=== PATIENT | male | born 1960 | race Caucasian/White ===

== ENCOUNTER 2022-08-04 08:53 | Outpatient (RCR) | payer BC ==
[~2022-08-04] VITALS: Ht 175.3 cm; Wt 85.2 kg
[~2022-08-04 08:53] MED LIST: ALEVE 220MG220 MG PO; ARAVA 20MG TABL20 MG PO; CUBICIN 500MG500 MG IV; DOXYCYCLINE 10100 MG PO; NORCO 325 MG-51 TAB PO; PREDNISONE10 MG PO; TUMS500 MG PO
[2022-08-04 09:32] LABS: BASO # 0.1 K/mm3 (0.0-0.2); BASO % 0.9 % (0.0-2.0); EOS # 0.5 K/mm3 (0.0-0.7); EOS % 6.6 % (0.0-4.0); GRAN # 4.8 K/mm3 (1.4-6.5); GRAN % 64.2 % (42.2-75.2); HEMOGLOBIN 11.8 g/dl (13.5-18.0); LYMPH # 1.4 K/mm3 (1.2-3.4); LYMPH % 18.9 % (20.0-51.0); MEAN CELL VOLUME 81 fl (80.0-100.0); MEAN CORPUSCULAR HEMOGLOBIN 26 pg (27-31); MEAN CORPUSCULAR HGB CONC 32 g/dl (33.0-37.0); MONO # 0.7 K/mm3 (0.1-0.6); PLATELET COUNT 309 K/mm3 (130-400); RED BLOOD COUNT 4.56 M/mm3 (4.20-5.60); REDCELL DISTRIBUTION WIDTH-CV 17.8 % (11.5-14.5)
[2022-08-04 09:33] LABS: HEMATOCRIT 36.8 % (42.0-52.0)
[2022-08-04 09:40] LABS: ALBUMIN 3.5 gm/dL (3.4-4.8); BILIRUBIN,TOTAL 0.3 mg/dL (0.2-1.2); C-REACTIVE PROTEIN 1.06 mg/dL (0.00-0.50); CALCIUM 9.6 mg/dL (8.4-10.2); CREATININE, serum 1.01 mg/dL (0.72-1.25); POTASSIUM 4.3 mmol/L (3.5-4.5); TOTAL PROTEIN 7.4 gm/dL (6.2-8.1)
[2022-08-04 10:03] LABS: ERYTHROCYTE SEDIMENTATION RATE 21 mm/hr (0-30)
[2022-08-04 10:08] VITALS: BP 151/81; PULSE 81; TEMP 98.1
[2022-08-04 10:10] VITALS: BP 151/81; PULSE 84; TEMP 98.1
--- NOTE | 2022-08-04 10:21 | NUR ---
Pt remained on bedrest for 30+ mins following PICC DC. Dressing remains clean, dry and intact. Pt education form for post PICC removal sent with pt. He will check in with Dr Rizo' office tomorrow, and take benadryl for redness, itching complaints. Pt exits dept with walker, gait steady.
== END 2022-08-04 10:21 | disposition home or self-care (01) ==
LOC: EUO 08:53
PROVIDERS: Family Medicine
DX: Z45.2 Encounter for adjustment and management of vascular access device (principal); M00.9 Pyogenic arthritis, unspecified

== ENCOUNTER 2023-12-17 05:36 | Inpatient (IN) | payer MEDICARE, BC ==
[2023-12-17] VITALS (11 sets, daily range): BP systolic 140–168; BP diastolic 68–93; PULSE 85–94; TEMP 97.6–98.5
[~2023-12-17] VITALS: Ht 175.3 cm; Wt 92.0 kg
[~2023-12-17 05:36] MED LIST changes: +LR 1,000 ML IV SCH
[2023-12-17 06:32] LABS: BASO # 0.1 K/mm3 (0.0-0.2); BASO % 1.2 % (0.0-2.0); EOS # 0.4 K/mm3 (0.0-0.7); EOS % 7.5 % (0.0-4.0); GRAN # 3.1 K/mm3 (1.4-6.5); HEMOGLOBIN 15.3 g/dl (13.5-18.0); LYMPH # 0.9 K/mm3 (1.2-3.4); LYMPH % 18.5 % (20.0-51.0); MEAN CELL VOLUME 94 fl (80.0-100.0); MEAN CORPUSCULAR HEMOGLOBIN 32 pg (27-31); MEAN CORPUSCULAR HGB CONC 34 g/dl (33.0-37.0); MEAN PLATELET VOLUME 9.9 fl (7.4-10.4); MONO # 0.6 K/mm3 (0.1-0.6); MONO % 12.6 % (1.7-9.3); PLATELET COUNT 237 K/mm3 (130-400); REDCELL DISTRIBUTION WIDTH-CV 13.3 % (11.5-14.5)
[2023-12-17 06:34] LABS: PROTHROMBIN TIME 11.1 SECONDS (9.7-12.8)
[2023-12-17] MEDS ORDERED: Vancomycin 1.5 GM,Special Dose/Pharmacy Prepared 1.5 GM in NS 250 ML IV SCH (06:45)
[2023-12-17 06:48] LABS: ERYTHROCYTE SEDIMENTATION RATE 60 mm/hr (0-30)
[2023-12-17] MEDS ORDERED: dexAMETHasone 10 MG/ML VIAL ONE (06:56)
[2023-12-17] MEDS ORDERED: NS 10 ML IV ONE (06:56)
[2023-12-17] MEDS ORDERED: Ketorolac 30 MG/ML VIAL ONE (06:56)
[2023-12-17] MEDS ORDERED: fentaNYL 50 MCG/ML 2 ML VIAL ONE ×2 (06:56→07:34)
[2023-12-17] MEDS ORDERED: Lidocaine PF 2% (20 MG/ML) 5 ML VIAL ONE (06:56)
[2023-12-17] MEDS ORDERED: Ondansetron 4 MG/2 ML VIAL ONE (06:56)
[2023-12-17 06:58] LABS: ALBUMIN 3.2 g/dL (3.4-4.8); BILIRUBIN,TOTAL 0.5 mg/dL (0.2-1.2); C-REACTIVE PROTEIN 2.49 mg/dL (0.00-0.50); CALCIUM 10.2 mg/dL (8.4-10.2); CREATININE, serum 1.01 mg/dL (0.72-1.25); POTASSIUM 3.8 mEq/L (3.5-4.5); TOTAL PROTEIN 7.2 g/dl (6.2-8.1)
[2023-12-17] MEDS ORDERED: Ondansetron 4 MG/2 ML VIAL IV PRN ×2 (07:45→08:15)
[2023-12-17] MEDS ORDERED: hydrALAZINE 20 MG/ML 1 ML VIAL IV PRN (07:45)
[2023-12-17] MEDS ORDERED: fentaNYL 50 MCG/ML 1 ML SYRINGE/VIAL [PACU/SDC ONLY] IV PRN (07:45)
[2023-12-17] MEDS ORDERED: HYDROmorphone 1 MG/1 ML SYRINGE [PACU/SDC ONLY] IV PRN (07:45)
[2023-12-17] MEDS ORDERED: droPERidol 2.5 MG/ML 2 ML VIAL IV PRN (07:45)
[2023-12-17] MEDS ORDERED: Vancomycin 1 GM VIAL IL ONE (07:55)
[2023-12-17] MEDS ORDERED: Naloxone 0.4 MG/ML VIAL IV PRN (08:15)
[2023-12-17] MEDS ORDERED: Magnes Hydrox (MOM) 80 MG/ML 30 ML CUP PO PRN (08:15)
[2023-12-17] MEDS ORDERED: NS 1,000 ML IV SCH (08:15)
[2023-12-17] MEDS ORDERED: oxyCODONE 5 MG TAB PO PRN (08:15)
[2023-12-17] MEDS ORDERED: Morphine 4 MG/ML VIAL IV PRN (08:15)
--- NOTE | 2023-12-17 08:33 | NUR ---
Vancomycin Initial Dosing Pharmacy Note Ordering provider: Babatunde Indication/duration: Septic arthritis, 42 days LABS: SCr 1.01, GFR 83 Recommendation: Vancomycin 1.5 gm IV x1 loading dose, then Vancomycin 1.25 gm IV q12h. Pharmacy will closely montior and check a trough on 12/18/23. Loading dose: 1.5 grams Maintenance dose: 1.25 grams every 12 hours Trough goal: 15-20 ug/mL
[2023-12-17] MEDS ORDERED: Celecoxib 200 MG CAP PO SCH (09:00)
[2023-12-17] MEDS ORDERED: Acetaminophen 500 MG TAB PO SCH (09:14)
--- NOTE | 2023-12-17 12:33 | NUR ---
PT ARRIVED FROM PACU AT 1010. VITALS STABLE. RATES PAIN 2/10 IN THE RIGHT KNEE. ASSESSED PT. ACEWRAP BULKY DRESSY TO RIGHT LEG. ANAYELI DRAIN TO BULB SUCTION ABOVE DRESSING. BRIGHT RED DRAINAGE. PT TOLERATING CLEARS. NO OTHER COMPLAINTS AT THIS TIME. CALL LIGHT WITHIN REACH.
[2023-12-17] MEDS ORDERED: TIMOPTIC 0.5%-10 OU (14:00)
[2023-12-17] MEDS ORDERED: Vancomycin 1.25 GM,Special Dose/Pharmacy Prepared 1.25 GM in NS 250 ML IV SCH (18:30)
[2023-12-17] MEDS ORDERED: Sennosides/Docusate 8.6-50 MG TAB PO SCH (21:00)
--- NOTE | 2023-12-17 21:35 | NUR ---
Pt sitting up in bed watching tv upon this nurse's entry to room. A&Ox4. No acute distress present. VS obtained and WNL. HS scheduled medications administered per EMAR. PRN oxycodone also administered per pt request. Pt reporting 4/10 sharp pain to right knee. Shift assessment performed. RR even and unlabored. HRRR. Abd round and soft. Bowel sounds present x4 quadrants. Skin is warm and dry. PIV to LFA INT. Right lower extremity elevated. Knee brace in place to right knee. ANGELIQUE wrap dressing to right knee free of saturation of drainage. ANAYELI drain present w/ approx 10cc of bright red sanguineous drainage. Ice pack placed to right knee. Pulses present and palpable to BLE. No loss in sensation to BLE. Pt denies any abnormal or febrile symptoms. Call light in reach. Care ongoing.
--- NOTE | 2023-12-17 22:09 | NUR ---
Pt has order for incentive spirometer QHR during waking hours. No incentive spirometer in room. RT contacted @ [phone] and will be bringing one for pt.
[2023-12-18] VITALS (11 sets, daily range): BP systolic 134–173; BP diastolic 80–101; PULSE 75–90; TEMP 97.5–98
--- NOTE | 2023-12-18 08:00 | NUR ---
PATIENT IS A&O. REPORTS MILD DISCOMFORT IN RLE BUT IS REQUESTING SOMETHING FOR PAIN BEFORE PT & PICC LINE PLACEMENT THIS AM. GAVE PRN OXYCODONE WITH AM MEDS, SEE MAR. NO C/O N/V. TOLERATING GENERAL DIET. LEFT FORARM IV TO INT. ORTHO CONFIRMED THEY WANT PICC PLACED TODAY, [facility]IVS NOTIFIED. RLE DSG IS CD&I WITH BULKY ACEWRAP AND TECHNOL BRACE INPLACE. ANAYELI TO BULB SUCTION WITH SCANT AMOUNTS OF BLOODY DRAINAGE NOTED. ICE PACK TO RLE. PATIENT INDEPENDENT IN ROOM. NO OTHER NEEDS AT THIS TIME. CALL LIGHT IN REACH.
--- NOTE | 2023-12-18 08:50 | NUR ---
[facility]IVS AT BEDSIDE SETTING UP FOR PICC LINE PLACEMENT.
--- NOTE | 2023-12-18 10:37 | NUR ---
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 He reports to live with his , Radha [phone] in [place]. He sees his caustics loader for any needs and does not have a PCP. He obtains medications from [facility] with no difficulties. He reports to be independent with ADLS and uses a FWW and crutches for DME. He does not have a DPOA-HC. Pt reports he is eager to go home. CAITLIN advised they have to set up his IV antibiotics and awaiting cultures to come back. Pt reports he would like to stay updated in the process. Pt has had IV antibiotics before and used [facility], his admistered the medication, and he went to [facility] labs and dressing changes. Pt would like to do this routine again. CAITLIN advised once she recieved all information she would continue to set up his discharge plan. CAITLIN faxed Carla Kaba pt's demographics to inform her of the need soon. Discharge Plan: home with IV ABOX
--- NOTE | 2023-12-18 10:47 | NUR ---
Initial visit; Patient very pleasant and has a lot of trust in his surgeon. He lives near [facility] [place] his father's land and seems to be enjoying his life. Hopefully his infection will clear up in his knee so he can have the surgery he needs on that knee. Piston Maker wished him well and God's blessings.
--- NOTE | 2023-12-18 15:05 | NUR ---
transition social worker received a call from [facility] inquiring about status of IV antibiotics. CAITLIN spoke with ZAC Driscoll who reports they have the preliminary results. CAITLIN has not received any scripts or additional information. CAITLIN informed [facility] that they have not obtained anything at this time. Arpita reports she will call pt to discuss the cost. Discharge Plan: home with IV ABOX
--- NOTE | 2023-12-18 20:15 | NUR ---
Report from PCT of elevated blood pressure-taken manually by this nurse-140s/90s. Patient states that he has been monitoring his BP per his PCM and has noted it to be elevated off and on but has not started blood pressure meds at this time. WIll continue to monitor.
--- NOTE | 2023-12-18 21:42 | NUR ---
Patient rating pain 4/10 to right knee-described as constant ache with intermittent throbbing. Oxycodone and [id number] tylenol given per dr order. Will continue to monitor.
[2023-12-19] VITALS (8 sets, daily range): BP systolic 140–163; BP diastolic 68–97; PULSE 69–87; TEMP 97.6–98.3
--- NOTE | 2023-12-19 06:04 | NUR ---
Patient has had an uneventful night. Has been up in room independently. Ambulating with walker. Received one dose of oxycodone for pain. Scheduled tylenol otherwise. Dressing to right knee-bulky white/pierre-CDI. No output from ANAYELI drain. VS remained stable-BP was slightly elevated but normal when taken manually. Denies current questions/concerns. Call light in reach. Will monitor.
--- NOTE | 2023-12-19 07:47 | NUR ---
Pt doing well this morning. Some pain complaints, but reports it is tolerable. BARAK Woods in to see pt, drain removed and dressing changed. PT denies any needs, will continue to monitor
--- NOTE | 2023-12-19 09:33 | NUR ---
Pt continues to do well with no complaints or needs. Looked under pierre wrap, no drainage visualized. Pt understands to notify nursing if he sees drainage on pierre wrap.
[2023-12-19] MEDS ORDERED: CELEBREX 200MG200 MG PO (13:28)
[2023-12-19] MEDS ORDERED: ROXICODONE 55 MG/TAB PO (13:28)
[2023-12-19] MEDS ORDERED: SENOKOT S 50 MG1 TAB PO (13:29)
[2023-12-19] MEDS ORDERED: VANCO 1 GR1 GM/250 M IV (13:36)
--- NOTE | 2023-12-19 14:04 | NUR ---
CAITLIN notified that patient is discharge ready today. CAITLIN spoke with Enio at [facility] ([phone]). He stated that he will need discharge orders, flush orders and lab orders. All requested orders and PICC procedure note and vanc trough faxed to En[facility] ([phone]). [facility] stated that they do not have a nurse to come to do teaching today and asked if RN could provide teaching prior to discharge. ZAC Turner notified. Enio informed that per notes, patient's has administered IV abx for patient in the past. Discharge plan: Home with IV antibiotics.
--- NOTE | 2023-12-19 17:47 | NUR ---
Reviewed discharge instructions with pt. Pt has talked with pharmacy that will be delivering the antibiotics tonight. PT reports feeling comfortable with giving the medication to himself, stated he has done it before. Discussed him coming in on Thursday for lab work prior to his morning dose of vancomycin, pt verbalized understanding.
--- NOTE | 2023-12-19 18:45 | NUR ---
Antibiotic has completed, Picc line flushed and pt escorted out. I did change his dressing to his right knee prior to him leaving. There was drainage on the gauze and abd, but it was not saturated. Applied gauze and abd, wrapped with kerlix and pierre wrap. Instructed pt to keep knee straight and not put anything under it when it is elevated. Pt escorted out at this time
== END 2023-12-19 18:46 | disposition home or self-care (01) | DRG 487 ==
LOC: SDCO 05:36 → EDSTATUS 07:30 → SDCO 07:30 → SURG 08:23 → SDCO 10:10 → SURG 10:10
PROVIDERS: ADMIT Orthopaedic Surgery
PROC: 0SBC4ZZ Excision of Right Knee Joint, Percutaneous Endoscopic Approach (ICD-10-PCS; principal; 2023-12-17 07:30)
DX: M00.9 Pyogenic arthritis, unspecified (principal)
CPT/HCPCS: A6197; C1751; J0360; J0690; J1100; J1650; J1885; J1920; J2405; J2704; J3010; J3370; J7050; J7120; Q3014